=== PATIENT | male | born 1995 | race Caucasian/White ===

== ENCOUNTER 2019-05-07 18:44 | Emergency (ER) | payer MEDICAID ==
[~2019-05-07] VITALS: Ht 177.8 cm; Wt 109.8 kg
[2019-05-07 20:00] VITALS: BP 151/74; Ht 177.8 cm; Wt 109.8 kg
== END 2019-05-07 21:01 | disposition home or self-care (01) ==
LOC: ED 18:44
DX: B34.9 Viral infection, unspecified (principal)
CPT/HCPCS: 87804